=== PATIENT | female | born 1940 | race Caucasian/White ===

== ENCOUNTER 2021-08-22 16:53 | Emergency (ER) | payer BC, OTHER ==
[~2021-08-22] VITALS: Ht 152.4 cm; Wt 46.7 kg
[2021-08-22] MEDS ORDERED: MORPHINE SULFATE 4 MG/1 ML DISP.SYRIN IV ONE (17:15)
[2021-08-22 17:28] LABS: MEAN CORPUSCULAR HEMOGLOBIN 31.2 uug (24.7-32.8); MEAN CORPUSCULAR VOLUME 92.2 fL (75.5-95.3); PLATELET COUNT (AUTO) 232 K/uL (179-408)
--- NOTE | 2021-08-22 17:28 | NUR ---
PT IS IN ROOM #1B. DR COX EVALUATED THE PT.
[2021-08-22 17:31] LABS: CREATININE 0.8 mg/dL (0.6-1.3); POTASSIUM 4.5 mmol/L (3.5-5.1)
[2021-08-22 17:37] LABS: BILIRUBIN,TOTAL 0.3 mg/dL (0.2-1.0); TOTAL PROTEIN, SERUM 6.9 g/dL (6.4-8.2)
[2021-08-22] MEDS ORDERED: MORPHINE SULFATE 4 MG/1 ML DISP.SYRIN ONE (17:51)
[2021-08-22] MEDS ORDERED: AMIT100T2 PO (18:08)
[2021-08-22] MEDS ORDERED: DILT-32 PO (18:08)
[2021-08-22] MEDS ORDERED: DIAZ5TAB4 PO (18:08)
[2021-08-22] MEDS ORDERED: BENA40TA8 PO (18:08)
[2021-08-22] MEDS ORDERED: OMEP40CA21 PO (18:08)
[2021-08-22] MEDS ORDERED: DILT-2 PO (18:08)
[2021-08-22] MEDS ORDERED: TRIA15CR2 TP (18:08)
[2021-08-22] MEDS ORDERED: PARO40TA4 PO (18:08)
[2021-08-22] MEDS ORDERED: FLUT10.62 INH (18:08)
[2021-08-22] MEDS ORDERED: RALO60TA PO (18:08)
[2021-08-22] MEDS ORDERED: CELE100C PO (18:08)
[2021-08-22] MEDS ORDERED: LEVO112T2 PO (18:08)
[2021-08-22] MEDS ORDERED: ALBU18HF2 INH (18:08)
[2021-08-22] MEDS ORDERED: ACETAMINOPHEN 325 MG TABLET PO ONE (18:30)
--- NOTE | 2021-08-22 19:07 | NUR ---
DR COX TALKED TO DR ARMSTRONG FROM [facility]. PT IS ACCEPTED BY DR ARMSTRONG. REPORT WAS GIVEN TO TRAIN CONTROL TECHNICIAN RN.
[2021-08-22 19:34] LABS: *BILIRUBIN,URIN NEGATIVE (NEGATIVE); *BLOOD, URINE NEGATIVE (NEGATIVE); *CLARITY,URINE CLEAR (CLEAR); *COLOR,URINE LIGHT YELLOW (YELLOW); *KETONES,URINE NEGATIVE (NEGATIVE); *UROBILINOGEN,URINE 0.2 E.U./dl (NORMAL); LEUKOCYTE ESTERASE ,URINE NEGATIVE (NEGATIVE); NITRITE, URINE NEGATIVE (NEGATIVE); PH,URINE 5.5 (5.0-8.0); UGLUCOSE NEGATIVE (NEGATIVE)
[2021-08-22] MEDS ORDERED: LORAZEPAM 2 MG/1 ML VIAL IV ONE (22:15)
--- NOTE | 2021-08-22 22:30 | NUR ---
Pt agitated and refused to be transfered, spoke with her niece about the plan of discharge, pt and niece agreed
--- NOTE | 2021-08-22 22:45 | NUR ---
IV removed. Catheter intact and site benign. Pressure and 4x4 gauze applied to site. No bleeding noted. Forrest catheter also removed. No bleeding noted.
--- NOTE | 2021-08-22 23:00 | NUR ---
Anneliese mann in EDM - 08/23/21 at 0151 by LINK Patient discharged to home in stable condition. Written and verbal after care instructions given. Patient verbalizes understanding of instructions. Stressed follow up or return to ER for worsening s/s.
--- NOTE | 2021-08-22 23:00 | NUR ---
Pt refused to sign discharge paperwork, walked out of the ER.
[2021-08-23 01:52] VITALS: BP 138/82
== END 2021-08-22 23:00 | disposition left against medical advice (07) ==
LOC: ER 16:55
DX: S72.112A Displaced fracture of greater trochanter of left femur, initial encounter for closed fracture (principal); W01.0XXA Fall on same level from slipping, tripping and stumbling without subsequent striking against object, initial encounter; Y92.89 Other specified places as the place of occurrence of the external cause; Z96.642 Presence of left artificial hip joint; E03.9 Hypothyroidism, unspecified; I10 Essential (primary) hypertension; J44.9 Chronic obstructive pulmonary disease, unspecified; Z88.5 Allergy status to narcotic agent; Z88.0 Allergy status to penicillin; R29.6 Repeated falls; Z53.29 Procedure and treatment not carried out because of patient's decision for other reasons; Z20.822 Contact with and (suspected) exposure to COVID-19
CPT/HCPCS: 36415; 51702; 73502; 80053; 81003; 85025; 85610; 87426; 96374; 99284; J2270; A4663